=== PATIENT | female | born 2000 | race Caucasian/White ===

== ENCOUNTER 2024-10-01 02:54 | Emergency (ER) | payer BC, SELFPAY ==
[2024-10-01 02:54] VITALS: BMI 22.7
[2024-10-01 02:59] VITALS: BP 171/98
--- NOTE | 2024-10-01 03:32 | ED.GENMED ---
History of Present Illness
General
Chief Complaint: Cold/Flu/URI Symptoms
Time Seen by Provider: 10/01/24 03:32
History of Present Illness
History of Present Illness:
TIME OF INITIAL ENCOUNTER: 4:20 AM
HPI: Patient presents with palpitations/sensation of heart beating fast. She did have Mucinex DM earlier. She also admits to having some degree of anxiety. She intermittently has had anxious episodes�she has not seen a behavioral health
specialist such as a psychologist yet. Overall she currently feels improved. She also states that she was worried because her father was diagnosed with heart failure at the age of 62.
EXAM:
GENERAL: Well appearing in no distress
HEENT: Moist oral mucosa
CARDIOVASCULAR: No murmurs, tachycardic heart rate, regular rhythm, No chest wall tenderness
PULMONARY: No respiratory distress, breath sounds are clear and equal
ABDOMEN: Soft with no peritoneal signs, no tenderness
NEUROLOGIC: Excellent strength all extremities, no coordination deficits
PSYCHIATRIC: Appropriate mental status, normal insight and judgement, however she does appear somewhat anxious
EXTREMITIES: Nontender, no edema, moves all extremities equally
SKIN: No rash, no lesions
NUMBER AND COMPLEXITY OF PROBLEMS ADDRESSED AT THE ENCOUNTER
� Chronic conditions affecting care: Has had UTIs and kidney stones but otherwise no significant past medical history
� Acute Exacerbation and/or Progression of Chronic Illness:
� Differential Diagnosis includes: Viral syndrome, anxiety, palpitations, electrolyte abnormality, thyroid disease
AMOUNT AND/OR COMPLEXITY OF DATA TO BE REVIEWED AND ANALYZED
� I performed an independent evaluation of and my interpretation is:
EKG: Sinus 126, QTc 579 ms but may be artifactual, after IV fluids were given, QTc repeat is [address]:
X-rays:
Laboratory Studies: 12.5, hemoglobin 14.4, chemistries unremarkable
Other:
� Review of other/old records: I reviewed records, the patient had CAT scan in 2018 that showed a left UVJ stone
� Clinical information was obtained by an independent historian: I spoke to anthony� at bedside
� Prescriptions/Medications Considered but not given:
� Further testing considered but not performed:
RISK OF COMPLICATIONS AND/OR MORBIDITY OR MORTALITY OF PATIENT MANAGEMENT
� Social determinants of health affecting care: Lives at home
� Discussion with other providers:
� Escalation of care including admission/observation vs risk of discharge considered: I do believe there is a strong anxiety component. Basic labs obtained which were unremarkable other than minimal leukocytosis. TSH normal.
ANY OTHER UPDATES:
4:50 AM: After IV fluids were given, repeat EKG was obtained, QTc is normal.
Past History
Past History
ED Past Medical History: Other (renal calc)
Social History
Tobacco: Non-smoker
Alcohol: None
Living: with family
Employment: Student
Phy Exam
Physical Exam
Physical Exam:
See HPI
Course
Orders/Labs/Results
Orders:
Orders
10/01/24 03:08
Test Result ONCE
10/01/24 03:10
Electrocardiogram (*1) Urgent
Reason for Study: Tachycardia
EKG- Treatment ONCE
10/01/24 03:33
0.9% Sodium Chloride 1000 ml [Nss] 1,000 ml IV BOLUS
10/01/24 03:43
Complete Blood Count/With Diff Urgent
Comprehensive Metabolic Panel Urgent
Lipase Urgent
TSH Reflex To Free T4 Urgent
10/01/24 04:42
Electrocardiogram (*1) Urgent
Reason for Study: Palpitations
EKG- Treatment ONCE
Abnormal Lab Results
10/01/24
03:43
WBC 12.5 H 10^3/uL
(4.8-10.8)
MPV 11.3 H fL
(7.4-10.4)
Absolute Neuts (auto) 9.8 H 10^3/uL
(1.4-6.5)
Absolute Monos (auto) 0.8 H 10^3/uL
(0.1-0.6)
Neutrophils % 78.5 H %
(42.2-75.2)
Lymphocytes % 14.3 L %
(20.5-51.1)
BUN 4 L mg/dl
(7-17)
Glucose 139 H mg/dl
(70-99)
10/01/24 03:43
10/01/24 03:43
Vital Signs
Initial and Last Documented VS:
Initial Vital Signs
Temp Pulse BP Pulse Ox
37.3 C 132 171/98 99
10/01/24 02:59 10/01/24 02:59 10/01/24 02:59 10/01/24 02:59
Last Documented Vital Signs
Temp Pulse Resp BP Pulse Ox
37.3 C 96 17 133/97 98
10/01/24 02:59 10/01/24 04:45 10/01/24 04:45 10/01/24 04:00 10/01/24 04:45
*Critical Care Note
Total Time (30-74mins, 75-104mins- exclusive of procedures): Not Applicable
ED Attending Note
-
Portions of this chart may have been created with voice recognition software.� Occasional wrong word or��sound alike� substitutions may have occurred due to the inherent limitations of voice recognition software.
Discharge Plan
Departure
Prescriptions:
No Action
tamsulosin 0.4 MG capsule
0.4 mg PO DAILY Qty: 14 0RF
Interventions
Interventions:
*Risk Screen - Suicide Last Done: 10/01/24 03:48
*General Assessment Last Done: 10/01/24 03:48
*Neglect/Abuse Screening Last Done: 10/01/24 03:48
ED- Fall Risk Assessment Last Done: 10/01/24 03:48
*ED COVID-19 Vaccine History Last Done: 10/01/24 02:59
ED- Pulmonary Assessment Last Done: 10/01/24 03:48
Discharge Date and Time
Print Language: VIET[place]ESE
[2024-10-01 03:41] VITALS: BP 138/83
[2024-10-01] MEDS: NSS 1000 IV (03:47)
[2024-10-01 03:52] LABS: % Basophils 0.4 % (0-2); % Eosinophils 0.6 % (0-6); % Immature Granulocytes 0.2 % (0-0.5); % Lymphocytes 14.3 % (20.5-51.1); % Neutrophils 78.5 % (42.2-75.2); Absolute Basophils 0.1 10^3/uL (0-0.2); Absolute Eosinophils 0.1 10^3/uL (0-0.7); Absolute Lymphocytes 1.8 10^3/uL (1.2-3.4); Absolute Monocytes 0.8 10^3/uL (0.1-0.6); Absolute Neutrophils 9.8 10^3/uL (1.4-6.5); Hematocrit 41.6 % (37.0-47.0); Hemoglobin 14.4 g/dL (12.0-16.0); Mean Corp Hgb Conc. 34.6 g/dL (33.0-37.0); Mean Corpuscular Hgb 30.9 pg (27.0-31.0); Mean Corpuscular Volume 89.3 fL (81.0-99.0); Mean Platelet Volume 11.3 fL (7.4-10.4); Nucleated Red Blood Cells % 0 %; Platelet Count 264 10^3/uL (130-400); Red Blood Cell Count 4.66 10^6/uL (4.20-5.40); Red Cell Dist. Width 11.5 % (11.5-14.5); White Blood Cell Count 12.5 10^3/uL (4.8-10.8)
[2024-10-01 04:00] VITALS: BP 133/97
[2024-10-01 04:05] LABS: ALT (SGPT) 19 U/L (0-35); AST (SGOT) 21 U/L (14-36); Albumin 4.7 g/dl (3.5-5.0); Alkaline Phosphatase 73 U/L (38-126); Blood Urea Nitrogen 4 mg/dl (7-17); Calcium 9.3 mg/dl (8.4-10.2); Carbon Dioxide 23 mmol/L (22-30); Chloride 101 mmol/L (98-107); Estimated Creatinine Clearance 120 ml/min; Glucose 139 mg/dl (70-99); Lipase 72 U/L (23-300); Potassium 3.8 mmol/L (3.5-5.1); Sodium 137 mmol/L (135-145); Total Bilirubin 0.7 mg/dl (0.2-1.3); Total Protein 7.6 g/dl (6.3-8.2); eGFR > 60.00
[2024-10-01 04:32] LABS: TSH Reflex To Free T4 0.99 uIU/ml (0.47-4.68)
[2024-10-01 05:00] VITALS: BP 130/92
== END 2024-10-01 05:24 | disposition home or self-care (01) ==
LOC: EMR 02:54
PROVIDERS: EMERGENCY PHYSICIAN Emergency Medicine; FAMILY PHYSICIAN Family Medicine
DX: R00.2 Palpitations (principal); F41.9 Anxiety disorder, unspecified; Z82.49 Family history of ischemic heart disease and other diseases of the circulatory system
CPT/HCPCS: 99283; 96360; 80053; 83690; 84443; 85025; 93005

== ENCOUNTER 2024-10-27 05:05 | Emergency (ER) | payer BC, SELFPAY ==
[2024-10-27 05:06] VITALS: BMI 23.2
[2024-10-27 05:09] VITALS: BP 148/93
[2024-10-27 05:18] VITALS: BP 128/89
--- NOTE | 2024-10-27 07:31 | ED.GENMED ---
History of Present Illness
General
Chief Complaint: Eye Problems
Source: patient
Exam Limitations: none
Time Seen by Provider: 10/27/24 06:51
Nursing documentation reviewed up to this point in time: agreed with
History of Present Illness
History of Present Illness:
24-year-old female presents with left eyelid swelling. She says that she had some sensitivity/soreness of the eyelid on Thursday and woke up Thursday with redness and swelling. Denies any pain in the eye itself, denies any loss of vision. Denies
any trauma. She saw her primary doctor who prescribed polymyxin and she has been doing this but it has not helped which prompted ER visit.
Past History
Past History
ED Past Medical History: Other (renal calc)
Social History
Tobacco: Non-smoker
Alcohol: None
Living: with family
Employment: Student
Review of Systems
Review of Systems
All Other Systems: ROS reviewed and negative except as documented in HPI and ROS
Constitutional: Denies fever
EENT: Reports other (Eyelid swelling and redness)
Phy Exam
Physical Exam
Physical Exam:
General: Well appearing and non-toxic
HEENT: protecting airway; patient has swelling and erythema of the left eyelid, no stye noted area is slightly tender to touch; her conjunctiva are normal, pupils are equal round and reactive to light bilaterally; extraocular movements are intact
without pain; she has no tenderness of the maxillary region or the forehead
Neck: appears supple
CV: No evidence of cyanosis
Resp: No accessory muscle use
Abd: Non-distended
Extremities: No deformities
Neuro: Alert
Psych: Normal affect
Skin: Intact
Scores
Heart Failure Risk
Heart Failure Risk Score: Not Applicable
Heart Score for Chest Pain Patients
STEMI patient?: Not applicable
Withdrawal Assessment of Alcohol
Withdrawal Assessment Completed?: Not applicable
Course
Orders/Labs/Results
Orders:
Orders
10/27/24 06:54
Visual Acuity- Treatment ONCE
10/27/24 07:18
Erythromycin (Ilotycin) [Erythromycin 0.5% Ophthalmic Ointment] See Dose Instructions OPHTH NOW STA
Vital Signs
Initial and Last Documented VS:
Initial Vital Signs
Temp Pulse BP Pulse Ox
36.4 C 85 148/93 100
10/27/24 05:09 10/27/24 05:09 10/27/24 05:09 10/27/24 05:09
Last Documented Vital Signs
Temp Pulse Resp BP Pulse Ox
36.5 C 88 14 128/89 100
10/27/24 05:18 10/27/24 05:18 10/27/24 05:18 10/27/24 05:18 10/27/24 05:18
MDM/Problems Addressed
Differential Diagnosis Includes:
Blepharitis, dacryocystitis, dacryoadenitis, preseptal cellulitis
MDM/Problems Addressed:
24-year-old female presents with left eyelid swelling appears consistent with blepharitis. Plan to treat with erythromycin ointment and conservative measures to start. Referred to ophthalmology for follow-up. I went over treatment instructions in
detail including instructions regarding warm compresses, eyelid massage, eyelid/facial cleaning and application of antibiotic. We spoke about return precautions and follow-up plan. All questions answered.
*Pulse Oximetry
Patient hypoxic: no
*Critical Care Note
Total Time (30-74mins, 75-104mins- exclusive of procedures): Not Applicable
Data Reviewed
Source: patient
ED Attending Note
-
Portions of this chart may have been created with voice recognition software.� Occasional wrong word or��sound alike� substitutions may have occurred due to the inherent limitations of voice recognition software.
Discharge Plan
Departure
Patient Disposition: Home (Routine Discharge)
Date of Disposition: 10/27/24
Time of Disposition: 07:26
Patient with high blood pressure during this ER visit?: No
Discharge Problem:
Blepharitis of eyelid of left eye
Instructions: Blepharitis
Prescriptions:
New
erythromycin 5 mg/gram (0.5 %) ointment
0.5 inch ophthalmic (eye) BID Qty: 3.5 0RF
No Action
tamsulosin 0.4 MG capsule
0.4 mg PO DAILY Qty: 14 0RF
Referrals:
Iron Piedra DO [Family Provider] -
Eleazar Casiano MD [Active] - Call in 1-3 days for appt
Activity Restrictions/Additional Instructions:
You were seen in the emergency room for swelling and redness of your left eyelid. We suspect that you have blepharitis. You were prescribed a topical antibiotic that you should apply to the margin of your eyelid twice daily. You should also make
sure that you are cleaning your face well in the morning and at nighttime with particular focus around the left eyelid; you may consider using [id number] eye wipes containing tree oil twice a day. You should apply a warm compress 2-3 times
daily to the eyelid (soak a washcloth in warm water and apply for 5 to 10 minutes total); after applying the warm compress gently massaging your eyelid for a few minutes afterwards using washcloth or clean fingertip can help. You may occasionally
have eye dryness associated with blepharitis; if you have eye dryness you can use artificial tears to help with this. You should do these things consistently for the next week and then see the prep manager (we gave you the number for Dr. Casiano
whose office is here right next to the hospital) next week to be reassessed. If you notice that your vision is worsening or you have an eye pain or if you develop worsening symptoms otherwise please return to the emergency room to be reassessed.
Thank you for visiting the Emergency Department at [facility].
1. Please schedule a follow up appointment as directed. Call first thing tomorrow morning to make an appointment.
2. If indicated, please take your medications as instructed and indicated on discharge paperwork.
3. If any of your symptoms do not improve, or persist, or become more severe within 6-12 hours, please return to the emergency department for further care.
4. Please return to the emergency department if you develop a headache, neck pain/stiffness, fever greater than 100.4F, chest pain, shortness of breath, persistent nausea, vomiting, slurred speech, difficulty walking, numbness/tingling, weakness,
signs of infection or any other symptoms that are worrisome to you.
Please call [phone] if you have any questions.
Interventions
Interventions:
*Risk Screen - Suicide Last Done: 10/27/24 05:18
*General Assessment Last Done: 10/27/24 05:18
*Neglect/Abuse Screening Last Done: 10/27/24 05:18
*ED COVID-19 Vaccine History Last Done: 10/27/24 05:18
Discharge Date and Time
Print Language: CYMRAES
[2024-10-27] MEDS: ERYTHROMYCIN 0.5% OPHTHALMIC OINTMENT 1 APPLIC OPHTH (07:46)
--- NOTE | 2024-10-27 07:54 | EDRN ---
Discharge instructions given to patient by . Patient stated that she understood them. Explained to patient on how to apply eye ointment. Verbalized understanding. Ambulated with steady gait to the [facility].
== END 2024-10-27 07:55 | disposition home or self-care (01) ==
LOC: EMR 05:05
PROVIDERS: EMERGENCY PHYSICIAN Emergency Medicine; FAMILY PHYSICIAN Family Medicine
DX: H01.006 Unspecified blepharitis left eye, unspecified eyelid (principal)
CPT/HCPCS: 99282